=== PATIENT | male | born 1975 | race Hispanic/Latino ===

== ENCOUNTER 2018-10-20 09:32 | Inpatient (IN) | payer OTHER ==
--- NOTE | 2018-10-20 10:26 | ED PDOC ---
Arrival/HPI - General Chief Complaint: Chest Pain Time Seen by Provider: 10/20/18 10:01 Historian: Patient - History of Present Illness Narrative History of Present Illness (Text): 10/20/18 10:21 A 43 year old male, whose past medical history includes , presents to the emergency department complaining of chest pain. Patient reports had this pain before, however not as severe. States he was evaluated at [facility], and was given medication. About 1 week ago, pain became progressively worse. This morning 03:00, patient awoke with severe burning chest pain, with severity of 10/10 as per patient. Patient states now in the ER pain is about 5-6/10. Also, patient mentions pain radiates to left arm, and his left hand 2nd, 3rd, and 4th digits have a pinching sensation. Patient denies any shortness of breath, neck pain, or any other complaints at this time. Denies any family history of [place]/CAD. Admits to smoking. No PMD Past Medical History - Provider Review Nursing Documentation Reviewed: Yes - Travel History Have you recently traveled outside w/in the past 3 mons?: Yes If Yes, travel location?: [place] - Infectious Disease Hx of Infectious Diseases: None - Psychiatric Hx Substance Use: No Family/Social History - Physician Review Nursing Documentation Reviewed: Yes Family/Social History: No Known Family HX Smoking Status: Heavy Smoker > 10 Cigarettes Daily Hx Alcohol Use: Yes Frequency of alcohol use: Socially Hx Substance Use: No Allergies/Home Meds Allergies/Adverse Reactions: Allergies No Known Allergies Allergy (Verified 10/20/18 14:10) Home Medications: Home Meds Medication Instructions Recorded Confirmed RX: Aspirin [Ecotrin] 81 mg PO DAILY 10/20/18 10/20/18 Review of Systems - Physician Review All systems were reviewed & negative as marked: Yes - Review of Systems Respiratory: absent: SOB Cardiovascular: Chest Pain Musculoskeletal: absent: Neck Pain Neurological: Dizziness Physical Exam - Physical Exam Narrative Physical Exam (Text): Gen: VS reviewed, alert, well developed, well nourished, nontoxic, mild distress. ENT: normal pharynx. Eye: EOMI, PERRL. Neck: no JVD, supple, no adenopathy. CV: regular rate, regular rhythm, no rubs, no murmur, no gallops, S1, S2, pulses equal and strong, mild tenderness to anterior right upper chest wall. Pulm: no distress, clear to auscultation, no wheeze, no rhonchi, breath sounds equal, no rales. Abd: soft, nontender, no guarding, no rebound, no rigidity, normal bowel sounds. Ext: no edema. Skin: good color, no rash, no cyanosis. Psych: responds appropriately to questions, normal affect. Neuro: oriented x 3, CN2-12 intact grossly, motor intact, sensation intact. Vital Signs Temp Pulse Pulse Resp BP BP Pulse Ox 10/20/18 09:46 103 H 152/103 H 10/20/18 09:44 98.2 F 91 H 21 169/100 H 97 Medical Decision Making ED Course and Treatment: 10/20/18 10:25 Impression: 43 year old male with chest pain. Plan: -- EKG -- Chest X-ray -- Labs -- Reassess and disposition Progress Notes: 10/20/18 13:15 heart score = 2 10/20/18 14:[address] pratt. 10/20/18 15:[address] aguilar to the hospitalist service. patient to be admitted 10/20/18 16:[address] lozada, will see pt in consult, expected cardiac cath tomorrow, npo after midnight, would like pt to get single dose of lovenox for now and plavix 300mg - RAD Interpretation Narrative RAD Interpretations (Text): 10/20/2018 10:52 Chest X-ray IMPRESSION: No active disease. Dictator Maureen Fraire MD Radiology Orders: 10/20/18 10:21 CHEST PORTABLE [RAD] Stat - EKG Interpretation EKG Interpretation (Text): 10/20/18 09:39 nsr at 92 bpm, nml qrs, nml axis, no acute sttw abn Interpreted by ED Physician: Yes - Scribe Statement The provider has reviewed the documentation as recorded by the Sammi Sosa Provider Scribe Attestation: All medical record entries made by the Scribe were at my direction and personally dictated by me. I have reviewed the chart and agree that the record accurately reflects my personal performance of the history, physical exam, medical decision making, and the department course for this patient. I have also personally directed, reviewed, and agree with the discharge instructions and disposition. Disposition/Present on Arrival - Present on Arrival Any Indicators Present on Arrival: No History of DVT/PE: No History of Uncontrolled Diabetes: No Urinary Catheter: No History of Decub. Ulcer: No History Surgical Site Infection Following: None - Disposition Have Diagnosis and Disposition been Completed?: Yes Diagnosis: Acute coronary syndrome Disposition: HOSPITALIZED Disposition Time: 15:00 Patient Plan: Admission Condition: STABLE
[2018-10-20 10:51] LABS: BASO # 0.04 K/mm3 (0.0-2.0); BASO % 0.7 % (0.0-3.0); EOS # 0.3 (0.0-0.7); EOS % 4.6 % (1.5-5.0); GRAN # 2.52 (1.4-6.5); GRAN % 46.4 % (50.0-68.0); HEMOGLOBIN 15.5 g/dL (14.0-18.0); LYMPH % 36.1 % (22.0-35.0); MEAN CELL VOLUME 88.6 fl (80.0-105.0); MEAN CORPUSCULAR HEMOGLOBIN 29.4 pg (25.0-35.0); MEAN CORPUSCULAR HGB CONC 33.1 g/dl (31.0-37.0); MEAN PLATELET VOLUME 9.6 fl (7.0-11.0); MONO # 0.7 (0.1-0.6); MONO % 12.2 % (1.0-6.0); RBC 5.28 10^6/uL (3.5-6.1); RED CELL DISTRIBUTION WIDTH 14.5 % (11.5-14.5); WHITE BLOOD COUNT 5.4 10^3/uL (4.5-11.0)
--- NOTE | 2018-10-20 10:55 | RAD ---
Date of service: 10/20/2018 HISTORY: chest pain COMPARISON: No prior. FINDINGS: LUNGS: No active pulmonary disease. PLEURA: No significant pleural effusion identified, no pneumothorax apparent. CARDIOVASCULAR: No aortic atherosclerotic calcification present. Normal cardiac size. No pulmonary vascular congestion. OSSEOUS STRUCTURES: No significant abnormalities. VISUALIZED UPPER ABDOMEN: Normal. OTHER FINDINGS: None. IMPRESSION: No active disease.
[2018-10-20 11:02] LABS: INR 0.95; PARTIAL THROMBOPLASTIN TIME 29.3 Seconds (25.1-36.5); PROTHROMBIN TIME 10.9 SECONDS (9.4-12.5)
[2018-10-20 11:04] LABS: ALB/GLOB RATIO 1.5 (1.1-1.8); ALBUMIN 4.2 g/dL (3.0-4.8); ALT/SGPT 47 U/L (7-56); AST/SGOT 24 U/L (17-59); BLOOD UREA NITROGEN 20 mg/dL (7-21); CALCIUM 9.2 mg/dL (8.4-10.5); GFR NON-AFRICAN AMERICAN > 60; HDL CHOLESTEROL 50 mg/dL (29-60); LIPASE 89 U/L (23-300)
[2018-10-20 11:15] LABS: LDL CHOLESTEROL 133 mg/dL (0-129)
[2018-10-20 11:18] LABS: TROPONIN I 0.02 ng/mL
[2018-10-20] MEDS ORDERED: Enoxaparin 80 mg Syringe SC STA (15:58)
[2018-10-20 16:12] VITALS: BMI 33.6
[2018-10-20] MEDS ORDERED: Enoxaparin 100 mg Syringe SC STA (16:15)
[2018-10-20] MEDS ORDERED: Albuterol-Ipratrop 3 mg / 0.5 (3 ml) UD IH PRN (16:35)
--- NOTE | 2018-10-20 16:49 | CP.PCM.HP ---
History of Present Illness - History of Present Illness History of Present Illness: CC: Chest pain 43 M with no significant PMHx presents to the ED with chest pain. Patient states that his pain started 3 weeks ago and has become progressively worse. When the pain initially started her went to an urgent care which sent him home with abx. The pain came back again 3 days ago and he took an aspirin and it resolved sp ontaneously. Than last night at 3am the pain became 10/10 in severity and his told him to come to the ED. Patient did just recently travel to [facility] 2 weeks ago. Denies any other complaints.Denies any f/c, sob, palpitations, abd pain, n/v/d. 12 Point ROS performed and neg other than stated above PMHx: as above PSHx: denies All: NKDA SH: Active smoker of 2 PPD, Social drinker, denies any drug use FH: mother with CAD, just had CABG 1 year ago Present on Admission - Present on Admission Any Indicators Present on Admission: No Review of Systems - Review of Systems All systems: reviewed and no additional remarkable complaints except Past Patient History - Infectious Disease Hx of Infectious Diseases: None - Past Social History Smoking Status: Heavy Smoker > 10 Cigarettes Daily - PSYCHIATRIC Hx Substance Use: No - SURGICAL HISTORY Hx Surgeries: No Meds Allergies/Adverse Reactions: Allergies Allergy/AdvReac Type Severity Reaction Status Date / Time No Known Allergies Allergy Verified 10/20/18 17:57 Physical Exam - Constitutional Appears: No Acute Distress - Head Exam Head Exam: ATRAUMATIC, NORMOCEPHALIC - Eye Exam Eye Exam: EOMI, PERRL Pupil Exam: NORMAL ACCOMODATION - Respiratory Exam Respiratory Exam: Clear to Auscultation Bilateral - Cardiovascular Exam Cardiovascular Exam: REGULAR RHYTHM, +S1, +S2 - GI/Abdominal Exam GI & Abdominal Exam: Normal Bowel Sounds, Soft - Extremities Exam Extremities exam: Positive for: normal capillary refill. Negative for: calf tenderness, pedal edema - Neurological Exam Neurological exam: Alert, CN II-XII Intact, Oriented x3 - Psychiatric Exam Psychiatric exam: Normal Mood - Skin Skin Exam: Dry, Warm Results - Vital Signs Recent Vital Signs: Last Vital Signs Temp 98.1 F 10/20/18 15:03 Pulse 73 10/20/18 15:03 Resp 18 10/20/18 15:03 BP 148/89 10/20/18 15:03 Pulse Ox 95 10/20/18 15:03 - Labs Result Diagrams: 10/20/18 10:01 10/20/18 10:01 Labs: Laboratory Results - last 24 hr 10/20/18 10/20/18 10/20/18 10:01 10:01 10:01 WBC 5.4 RBC 5.28 Hgb 15.5 Hct 46.8 MCV 88.6 MCH 29.4 MCHC 33.1 RDW 14.5 Plt Count 258 MPV 9.6 Gran % 46.4 L Lymph % (Auto) 36.1 H [place] % (Auto) 12.2 H Eos % (Auto) 4.6 Baso % (Auto) 0.7 Gran # 2.52 Lymph # (Auto) 2.0 [place] # (Auto) 0.7 H Eos # (Auto) 0.3 Baso # (Auto) 0.04 PT 10.9 INR 0.95 APTT 29.3 Sodium 139 Potassium 4.9 Chloride 108 H Carbon Dioxide 24 Anion Gap 12 BUN 20 Creatinine 1.2 Est GFR ( Amer) > 60 Est GFR (Non-Af Amer) > 60 Random Glucose 108 Calcium 9.2 Total Bilirubin 0.3 AST 24 ALT 47 Alkaline Phosphatase 65 Troponin I 0.02 Total Protein 7.0 Albumin 4.2 Globulin 2.8 Albumin/Globulin Ratio 1.5 Triglycerides 178 H Cholesterol 229 H LDL Cholesterol Direct 133 H HDL Cholesterol 50 Lipase 89 TSH 3rd Generation 10/20/18 10/20/18 10:01 13:00 WBC RBC Hgb Hct MCV MCH MCHC RDW Plt Count MPV Gran % Lymph % (Auto) [place] % (Auto) Eos % (Auto) Baso % (Auto) Gran # Lymph # (Auto) [place] # (Auto) Eos # (Auto) Baso # (Auto) PT INR APTT Sodium Potassium Chloride Carbon Dioxide Anion Gap BUN Creatinine Est GFR ( Amer) Est GFR (Non-Af Amer) Random Glucose Calcium Total Bilirubin AST ALT Alkaline Phosphatase Troponin I 0.20 H* D Total Protein Albumin Globulin Albumin/Globulin Ratio Triglycerides Cholesterol LDL Cholesterol Direct HDL Cholesterol Lipase TSH 3rd Generation 1.25 Assessment & Plan - Assessment and Plan (Free Text) Assessment: 43 M with no significant PMHx presents to the ED with chest pain, found to have elevated troponin likely 2/2 NSTEMI. Elevated Troponin likely 2/2 NSTEMI - NPO - Aspirin 81mg daily - Plavix 300mg in the ED - Started on Metoprolol and Statin - Therapeutic dose of anticoagulation with Lovenox 95 BID - Cardiology consulted for recs - possible cardiac cath mavis - Echo ordered - Tele monitoring - F/u serial troponin - Duonebs as needed - Daily labs GI/DVT - Lovenox and protonix Case and plan was reviewed and discussed with Dr Chauhan.
--- NOTE | 2018-10-20 17:55 | CARD ---
APPROVED REPORT Date of service: 10/20/2018 EKG Measurement Heart [id number] <Conclusion> Normal sinus rhythm Left axis deviation Abnormal ECG
[2018-10-20] MEDS ORDERED: Influenza Vaccine 60 mcg/0.5 mL SYR (4YR UP) IM ONE (19:36)
[2018-10-20] MEDS ORDERED: Pneumococcal 23-Valent Vaccine IM ONE (19:36)
[2018-10-20 21:39] LABS: TROPONIN I 1.2 ng/mL
[2018-10-21] MEDS ORDERED: Nitroglycerin 2% Ointment Foilpak UD TOP STA (00:17)
[2018-10-21] MEDS: Pantoprazole 40 mg EC Tab PO SCH (06:03)
[2018-10-21 07:01] LABS: BASO # 0.04 K/mm3 (0.0-2.0); BASO % 0.6 % (0.0-3.0); EOS # 0.3 (0.0-0.7); EOS % 4.7 % (1.5-5.0); GRAN # 2.32 (1.4-6.5); GRAN % 36.8 % (50.0-68.0); HEMOGLOBIN 14.7 g/dL (14.0-18.0); LYMPH # 2.6 (1.2-3.4); LYMPH % 41.3 % (22.0-35.0); MEAN CELL VOLUME 88.6 fl (80.0-105.0); MEAN CORPUSCULAR HGB CONC 32.7 g/dl (31.0-37.0); MEAN PLATELET VOLUME 9.4 fl (7.0-11.0); MONO # 1.1 (0.1-0.6); MONO % 16.6 % (1.0-6.0); RBC 5.07 10^6/uL (3.5-6.1); RED CELL DISTRIBUTION WIDTH 14.8 % (11.5-14.5); WHITE BLOOD COUNT 6.3 10^3/uL (4.5-11.0)
[2018-10-21 07:25] LABS: ALB/GLOB RATIO 1.3 (1.1-1.8); ALBUMIN 3.9 g/dL (3.0-4.8); ALT/SGPT 43 U/L (7-56); AST/SGOT 34 U/L (17-59); BLOOD UREA NITROGEN 20 mg/dL (7-21); CALCIUM 8.9 mg/dL (8.4-10.5); GFR NON-AFRICAN AMERICAN 60
[2018-10-21 07:42] LABS: URINE APPEARANCE CLEAR (CLEAR); URINE BILIRUBIN NEGATIVE (NEGATIVE); URINE BLOOD NEGATIVE (NEGATIVE); URINE COLOR LIGHT YELLOW (YELLOW); URINE GLUCOSE (UA) NEGATIVE (NEGATIVE); URINE LEUKOCYTE ESTERASE NEGATIVE Leu/uL (NEGATIVE); URINE PROTEIN NEGATIVE mg/dL (<30 mg/dL); URINE UROBILINOGEN 0.2 E.U./dL (<1 E.U./dL)
[2018-10-21] MEDS ORDERED: Lidocaine 2% Inj (20ml) ONE (08:55)
[2018-10-21] MEDS ORDERED: Iodixanol 320 MG/ML 200 ML BOTTLE IV ONE (08:55)
--- NOTE | 2018-10-21 09:13 | CARD ---
APPROVED REPORT Date of service: 10/21/2018 EKG Measurement Heart [id number] <Conclusion> Normal sinus rhythm Left axis deviation T wave abnormality, consider anterolateral ischemia Prolonged QT Abnormal ECG
[2018-10-21] MEDS ORDERED: Midazolam 2 MG/2 ML VIAL ONE ×3 (09:33→10:16)
[2018-10-21] MEDS ORDERED: Eptifibatide 20 mg/10mL Inj IVP ONE (09:43)
[2018-10-21] MEDS ORDERED: Eptifibatide 0.75 mg/ml 75 MG/100 ML BOTTLE IV ONE ×2 (09:50→16:57)
[2018-10-21] MEDS ORDERED: Iohexol 350mgl/ml 50 ML ONE (09:57)
--- NOTE | 2018-10-21 10:19 | CON ---
DATE: 10/20/2018 HISTORY: The patient is a 43-year-old male, who presents with substernal pressure. The patient's cardiac risk factors include heavy smoking for many years. In addition, he has marked family history for coronary disease with mother and father, both with documented coronary disease. In the emergency room, his troponins were found to be elevated. He denies diabetes mellitus or hypertension. SOCIAL HISTORY: The patient is an active smoker and works for the [employer] REVIEW OF SYSTEMS: Fourteen-point review of systems is reviewed in detail. Other than his angina and dyspnea, no other cardiac symptoms are noted. No ulcers. No bleeding history and no past medical history. PHYSICAL EXAMINATION: VITAL SIGNS: Blood pressure is 132/90, heart rate is in the 70s. NECK: Negative JVD. LUNGS: Without rales. HEART: Heart rate, S1, S2. EXTREMITIES: Without edema. EKG reveals normal sinus rhythm with diffuse ST-T changes in the anterior precordium. Troponins were elevated to 0.2. BUN and creatinine, unremarkable. Hemoglobin is 14. IMPRESSION: 1. Non-ST elevation myocardial infarction. 2. Unstable angina. 3. Coronary artery disease. 4. Probable chronic obstructive pulmonary disease. 5. Nicotine addiction. 6. Strong family history for coronary artery disease. PLAN: Given these findings, the patient will be started on aspirin, Plavix, Lovenox, nitroglycerin, and beta blockers. The patient will need cardiac catheterization. John Grace MD
[2018-10-21] MEDS ORDERED: Nitroglycerin 50mg in D5W 50 MG/250 ML BOTTLE IV ONE (10:20)
[2018-10-21] MEDS ORDERED: Iodixanol 320 MG/ML 100 ML BOTTLE IV ONE (10:22)
[2018-10-21] MEDS: Enoxaparin 100 mg Syringe SC SCH ×2 (10:32→22:00)
[2018-10-21] MEDS ORDERED: Sodium Chloride 0.9% 1,000 ML IV SCH (10:45)
--- NOTE | 2018-10-21 12:56 | CP.PCM.PN ---
<Eliseo Livingston - Last Filed: 10/21/18 12:51> Subjective - Date & Time of Evaluation Date of Evaluation: 10/21/18 Time of Evaluation: 07:15 - Subjective Subjective: Hospitalist Progress Note: Pt seen and examined at bedside. No acute events overnight. Patient is NPO this am for cardiac cath. Mild chest pain but denies any sob. No other complaints. 12 Point ROS performed and neg other than stated above. Objective - Vital Signs/Intake and Output Vital Signs (last 24 hours): Temp Pulse Resp BP Pulse Ox 97.7 F 74 18 122/71 97 10/21/18 11:55 10/21/18 11:55 10/21/18 11:55 10/21/18 11:55 10/21/18 06:00 Intake and Output: 10/21/18 10/21/18 06:59 18:59 Intake Total 0 Balance 0 - Medications Medications: Current Medications Albuterol/Ipratropium (Duoneb 3 Mg/0.5 Mg (3 Ml) Ud) 3 ml IH [id number] PRN PRN Reason: Shortness of Breath Aspirin (Aspirin Chewable) 81 mg PO DAILY [facility] Last Admin: 10/21/18 10:31 Dose: Not Given Aspirin (Ecotrin) 81 mg PO DAILY [facility] Atorvastatin Calcium (Lipitor) 40 mg PO DIN [facility] Last Admin: 10/20/18 19:01 Dose: 40 mg Clopidogrel Bisulfate (Plavix) 75 mg PO DAILY [facility] Enoxaparin Sodium (Lovenox) 95 mg SC Q12H [facility]; Protocol Last Admin: 10/21/18 10:32 Dose: Not Given Sodium Chloride (Sodium Chloride 0.9%) 1,000 mls @ 100 mls/hr IV .Q10H [facility] Stop: 10/21/18 17:00 Nicotine (Nicoderm Cq) 1 patch TD DAILY [facility] Pantoprazole Sodium (Protonix Ec Tab) 40 mg PO 0600 [facility] Last Admin: 10/21/18 06:03 Dose: 40 mg - Labs Labs: 10/21/18 06:30 10/21/18 06:30 PT 10.9 SECONDS (9.4-12.5) 10/20/18 10:01 INR 0.95 10/20/18 10:01 APTT 29.3 Seconds (25.1-36.5) 10/20/18 10:01 - Constitutional Appears: No Acute Distress - Head Exam Head Exam: ATRAUMATIC, NORMOCEPHALIC - Eye Exam Eye Exam: EOMI - ENT Exam ENT Exam: Mucous Membranes Moist - Respiratory Exam Respiratory Exam: Clear to Ausculation Bilateral. absent: Rales, Wheezes - Cardiovascular Exam Cardiovascular Exam: REGULAR RHYTHM, RRR, +S1, +S2 - GI/Abdominal Exam GI & Abdominal Exam: Soft. absent: Distended, Tenderness - Extremities Exam Extremities Exam: absent: Calf Tenderness, Pedal Edema - Back Exam Back Exam: absent: paraspinal tenderness, vertebral tenderness - Neurological Exam Neurological Exam: Alert, Awake, Oriented x3 - Psychiatric Exam Psychiatric exam: Normal Mood - Skin Skin Exam: Dry, Warm Assessment and Plan - Assessment and Plan (Free Text) Assessment: 43 M with no significant PMHx presents to the ED with chest pain, found to have elevated troponin likely 2/2 NSTEMI. NPO today for cardiac cath. Elevated Troponin likely 2/2 NSTEMI - NPO - for cardiac cath - Aspirin 81mg and plavix daily - Started on Metoprolol and Statin - Anticoagulation with Lovenox 95 BID - Cardiology consulted for recs - pland for cardiac cath today - Echo ordered - will follow up - Tele monitoring - F/u serial troponin 0.02--> 0.2--> 1.2--> 1.01 - Duonebs as needed - Daily labs GI/DVT - Lovenox and protonix Case and plan was reviewed and discussed with Dr Covarrubias <Wilfrido Covarrubias - Last Filed: 10/22/18 18:17> Objective - Vital Signs/Intake and Output Vital Signs (last 24 hours): Temp Pulse Resp BP Pulse Ox 98.2 F 75 18 124/66 95 10/22/18 13:25 10/22/18 16:55 10/22/18 16:55 10/22/18 16:55 10/22/18 06:00 Intake and Output: 10/22/18 10/22/18 06:59 18:59 Intake Total 640 Balance 640 - Medications Medications: Current Medications Albuterol/Ipratropium (Duoneb 3 Mg/0.5 Mg (3 Ml) Ud) 3 ml IH [id number] PRN PRN Reason: Shortness of Breath Aspirin (Ecotrin) 81 mg PO DAILY [facility] Last Admin: 10/22/18 10:07 Dose: 81 mg Atorvastatin Calcium (Lipitor) 40 mg PO DIN [facility] Last Admin: 10/22/18 17:32 Dose: 40 mg Clopidogrel Bisulfate (Plavix) 75 mg PO DAILY [facility] Last Admin: 10/22/18 10:07 Dose: 75 mg Nicotine (Nicoderm Cq) 1 patch TD DAILY [facility] Last Admin: 10/22/18 10:08 Dose: Not Given - Labs Labs: 10/22/18 06:30 10/22/18 06:30 PT 10.9 SECONDS (9.4-12.5) 10/20/18 10:01 INR 0.95 10/20/18 10:01 APTT 29.3 Seconds (25.1-36.5) 10/20/18 10:01 Attending/Attestation - Attestation I have personally seen and examined this patient.: Yes I have fully participated in the care of the patient.: Yes I have reviewed all pertinent clinical information, including history, physical exam and plan: Yes Notes (Text): NSTEMI s/p cardiac cath with 3 LAMONT placed c/w DAPT Cardiology on board, will f/u further recommendations
--- NOTE | 2018-10-21 13:57 | CARDCATH ---
PROCEDURE DATE: 10/21/2018 HISTORY: The patient is a 43-year-old male who presents with unstable angina and non-STEMI. The patient was started on intravenous Integrilin, Plavix, aspirin and brought to the labourers for an emergency cardiac catheterization. PROCEDURE: Left heart catheterization with coronary arteriography and left ventriculogram and a supraaortic valvular injection followed by PTCA and stent of two lesions in the LAD as well as the circumflex artery with drug-eluting stents. The right femoral artery was cannulated with a 6-Ind[place] sheath. There were no complications. I performed moderate sedation which included the presence of an independent trained observer that assisted in monitoring the patient's level of consciousness and physiologic status. After administration of Versed and fentanyl, my intra service time was 45 minutes. The findings on catheterization revealed a left ventricle that preserved its LV function. Estimated ejection fraction is 55-60 percent. His coronary anatomy revealed a right dominant circulation. The RCA revealed diffuse atherosclerosis throughout its tree with no critical lesions. The left main artery was unremarkable. The LAD revealed a 70 percent stenosis at its ostium followed by a 99 percent stenosis in its proximal portion with the rest of the LAD revealed diffuse intimal irregularities without critical lesions including a 40 50 percent stenosis in the mid portion. The circumflex artery consisted of a large obtuse marginal branch. There was a 70 percent stenosis at the proximal portion of the obtuse marginal branch. The patient was started on intravenous heparin, which resulted in ACT of 270. With concomitant Integrilin, a guiding catheter was placed in the ostium of the left main artery and 0.014 ATW wire was used to cross the two lesions in the LAD. Predilatation was performed with a 2.5 balloon. Postdilatation was performed with a 3.5 x 12 mm drug-eluting stent was placed and deployed in the proximal lesion. A 3.5 x 8 mm drug-eluting stent was placed and deployed at the ostium of the LAD. Repeat coronary arteriography revealed an excellent result with no residual stenosis and JAMES III flow. The wire was then brought back into the circumflex artery. A 3.5 x 8 mm drug-eluting stent was placed at the proximal portion of the OM. After balloon deflation and removal, repeat coronary arteriography revealed an excellent result with no residual stenosis and JAMES III flow. The patient tolerated the procedure well. Angio-Seal was used to close the femoral artery site. In summary, the procedure was successful for an emergency PTCA and stent of two lesions in the proximal and ostium of the LAD, as well as the proximal obtuse marginal branch, all with drug-eluting stents. 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 Normal LV function. Given these findings, the patient will need to remain on aspirin indefinitely and Plavix for at least a year. He will remain on Integrilin for the next 18 hours. He needs to stop smoking and undergo a strict cardiac risk reduction program. John Grace MD
--- NOTE | 2018-10-21 18:55 | CARD ---
APPROVED REPORT Date of service: 10/21/2018 EKG Measurement Heart [id number] <Conclusion> Normal sinus rhythm T wave abnormality, consider anterolateral ischemia Prolonged QT Abnormal ECG
[2018-10-21] MEDS ORDERED: Eptifibatide 0.75 mg/ml 75 MG/100 ML BOTTLE IV SCH (22:45)
[2018-10-22] MEDS: Pantoprazole 40 mg EC Tab PO SCH (06:55)
[2018-10-22 07:07] LABS: BASO # 0.02 K/mm3 (0.0-2.0); BASO % 0.3 % (0.0-3.0); EOS # 0.3 (0.0-0.7); EOS % 3.1 % (1.5-5.0); GRAN # 4.45 (1.4-6.5); GRAN % 55.8 % (50.0-68.0); HEMOGLOBIN 14.1 g/dL (14.0-18.0); LYMPH # 2.4 (1.2-3.4); LYMPH % 30.6 % (22.0-35.0); MEAN CELL VOLUME 88.4 fl (80.0-105.0); MEAN CORPUSCULAR HEMOGLOBIN 28.7 pg (25.0-35.0); MEAN CORPUSCULAR HGB CONC 32.4 g/dl (31.0-37.0); MEAN PLATELET VOLUME 9.4 fl (7.0-11.0); MONO # 0.8 (0.1-0.6); MONO % 10.2 % (1.0-6.0); RBC 4.92 10^6/uL (3.5-6.1); RED CELL DISTRIBUTION WIDTH 14.4 % (11.5-14.5)
[2018-10-22 07:10] LABS: ALB/GLOB RATIO 1.2 (1.1-1.8); ALBUMIN 3.8 g/dL (3.0-4.8); ALT/SGPT 45 U/L (7-56); AST/SGOT 29 U/L (17-59); BLOOD UREA NITROGEN 14 mg/dL (7-21); GFR NON-AFRICAN AMERICAN > 60
--- NOTE | 2018-10-22 08:30 | PN ---
DATE: 10/22/2018 SUBJECTIVE: The patient had an episode of chest pain. EKG shows evolution of his ST changes. PHYSICAL EXAMINATION: VITAL SIGNS: Stable. NECK: Negative JVD. LUNGS: Without rales. HEART: Reveals S1, S2 with right groin site is stable. EKG shows evolving ST-T changes across the anterior precordium. LABORATORY DATA: Hemoglobin is unremarkable. Troponins yesterday peaked at 1.2. IMPRESSION: 1. Recurrent chest pain post catheterization. 2. Status post percutaneous transluminal coronary angioplasty and stent of 2 lesions in the left anterior descending and one in the right coronary artery. 3. Recurrent chest pain. 4. Chronic obstructive pulmonary disease. Given these findings, we will bring the patient back for catheterization and see the patency of his LAD. John Grace MD
[2018-10-22] MEDS ORDERED: Phenylephrine 10 mg/ml Inj ONE (12:05)
[2018-10-22] MEDS ORDERED: Iodixanol 320 MG/ML 100 ML BOTTLE IV ONE (12:06)
[2018-10-22] MEDS ORDERED: Iohexol 350mgl/ml 50 ML ONE (12:06)
[2018-10-22] MEDS ORDERED: Iodixanol 320 MG/ML 200 ML BOTTLE IV ONE (12:06)
[2018-10-22] MEDS ORDERED: Lidocaine 2% Inj (20ml) ONE (12:06)
[2018-10-22] MEDS ORDERED: Nitroglycerin 50mg in D5W 0 MG/0 ML BOTTLE IV ONE (12:06)
[2018-10-22] MEDS ORDERED: Midazolam 2 MG/2 ML VIAL ONE ×3 (12:22→12:35)
[2018-10-22] MEDS ORDERED: Sodium Chloride 0.9% 1,000 ML IV SCH (13:00)
--- NOTE | 2018-10-22 15:22 | CP.PCM.PN ---
<Eliseo Livingston - Last Filed: 10/22/18 15:22> Subjective - Date & Time of Evaluation Date of Evaluation: 10/22/18 Time of Evaluation: 07:45 - Subjective Subjective: Hospitalist Progress Note: Pt seen and examined at bedside. No acute events overnight. Patient had episode of chest pain last night with some EKG changes. NPO this am for cardiac cath again. No other complaints. 12 Point ROS performed and neg other than stated above. Objective - Vital Signs/Intake and Output Vital Signs (last 24 hours): Temp Pulse Resp BP Pulse Ox 98.2 F 77 18 136/75 95 10/22/18 13:25 10/22/18 14:00 10/22/18 13:55 10/22/18 13:55 10/22/18 06:00 Intake and Output: 10/22/18 10/22/18 06:59 18:59 Intake Total 640 Balance 640 - Medications Medications: Current Medications Albuterol/Ipratropium (Duoneb 3 Mg/0.5 Mg (3 Ml) Ud) 3 ml IH [id number] PRN PRN Reason: Shortness of Breath Aspirin (Ecotrin) 81 mg PO DAILY [facility] Last Admin: 10/22/18 10:07 Dose: 81 mg Atorvastatin Calcium (Lipitor) 40 mg PO DIN [facility] Last Admin: 10/21/18 18:15 Dose: 40 mg Clopidogrel Bisulfate (Plavix) 75 mg PO DAILY [facility] Last Admin: 10/22/18 10:07 Dose: 75 mg Sodium Chloride (Sodium Chloride 0.9%) 1,000 mls @ 100 mls/hr IV .Q10H [facility] Stop: 10/22/18 18:00 Last Admin: 10/22/18 13:33 Dose: 100 mls/hr Nicotine (Nicoderm Cq) 1 patch TD DAILY [facility] Last Admin: 10/22/18 10:08 Dose: Not Given - Labs Labs: 10/22/18 06:30 10/22/18 06:30 PT 10.9 SECONDS (9.4-12.5) 10/20/18 10:01 INR 0.95 10/20/18 10:01 APTT 29.3 Seconds (25.1-36.5) 10/20/18 10:01 - Constitutional Appears: No Acute Distress - Head Exam Head Exam: ATRAUMATIC - Eye Exam Eye Exam: EOMI, PERRL - ENT Exam ENT Exam: Mucous Membranes Moist - Respiratory Exam Respiratory Exam: Clear to Ausculation Bilateral. absent: Rales, Wheezes - Cardiovascular Exam Cardiovascular Exam: REGULAR RHYTHM, RRR, +S1, +S2 - GI/Abdominal Exam GI & Abdominal Exam: Soft. absent: Distended, Tenderness - Extremities Exam Extremities Exam: absent: Calf Tenderness, Pedal Edema - Neurological Exam Neurological Exam: Alert, Awake, Oriented x3 - Psychiatric Exam Psychiatric exam: Normal Mood - Skin Skin Exam: Dry, Warm Assessment and Plan - Assessment and Plan (Free Text) Assessment: 43 M with no significant PMHx presents to the ED with chest pain, found to have elevated troponin likely 2/2 NSTEMI s/p 2 stents in LAD and 1 stent in OM. Plan for repeat cath for chest pain and EKG changes. Elevated Troponin likely 2/2 NSTEMI s/p 3 stents - NPO - for repeat cardiac cath this am - Aspirin 81mg and plavix daily - Continue Statin - Cardiology consulted for recs - plan for repeat cardiac cath - Echo ordered - will follow up - Tele monitoring - F/u serial troponin 0.02--> 0.2--> 1.2--> 1.01 - Duonebs as needed - Daily labs - Encouraged smoking cessation GI/DVT - Lovenox and protonix Case and plan was reviewed and discussed with Dr Covarrubias <Wilfrido Covarrubias - Last Filed: 10/22/18 18:19> Objective - Vital Signs/Intake and Output Vital Signs (last 24 hours): Temp Pulse Resp BP Pulse Ox 98.2 F 75 18 124/66 95 10/22/18 13:25 10/22/18 16:55 10/22/18 16:55 10/22/18 16:55 10/22/18 06:00 Intake and Output: 10/22/18 10/22/18 06:59 18:59 Intake Total 640 Balance 640 - Medications Medications: Current Medications Albuterol/Ipratropium (Duoneb 3 Mg/0.5 Mg (3 Ml) Ud) 3 ml IH [id number] PRN PRN Reason: Shortness of Breath Aspirin (Ecotrin) 81 mg PO DAILY [facility] Last Admin: 10/22/18 10:07 Dose: 81 mg Atorvastatin Calcium (Lipitor) 40 mg PO DIN [facility] Last Admin: 10/22/18 17:32 Dose: 40 mg Clopidogrel Bisulfate (Plavix) 75 mg PO DAILY [facility] Last Admin: 10/22/18 10:07 Dose: 75 mg Nicotine (Nicoderm Cq) 1 patch TD DAILY [facility] Last Admin: 10/22/18 10:08 Dose: Not Given - Labs Labs: 10/22/18 06:30 10/22/18 06:30 PT 10.9 SECONDS (9.4-12.5) 10/20/18 10:01 INR 0.95 10/20/18 10:01 APTT 29.3 Seconds (25.1-36.5) 10/20/18 10:01 Attending/Attestation - Attestation I have personally seen and examined this patient.: Yes I have fully participated in the care of the patient.: Yes I have reviewed all pertinent clinical information, including history, physical exam and plan: Yes Notes (Text): Overnight, pt had some chest tightness and EKG showed some Twave changes Cardio was informed, plan is to take pt for another cath today will f/u findings and further recommendations c/w DAPT
--- NOTE | 2018-10-22 18:16 | CARDCATH ---
PROCEDURE DATE: 10/22/2018 The patient is status post non-STEMI and status post multivessel CAD complicated by post infarction angina. Because of his recurrent angina and chest pain as well as EKG changes, we brought the patient back for cardiac catheterization. PROCEDURE: Left heart catheterization with coronary artery and left ventriculogram. The left femoral artery was cannulated with 6-Guamanian sheath. There were no complications. I performed moderate sedation, which included the presence of an independent trained observer that assisted in monitoring the patient's level of consciousness and physiologic status. After administration of Versed and fentanyl, my intra service time was 15 minutes. Findings on catheterization revealed patent stents in the proximal LAD as well as the ostium of the LAD. The stent in two LADs were widely patent with JAMES III flow. The stent in the proximal portion of the obtuse marginal branch was found to be widely patent and provided good antegrade flow. Left ventriculogram was performed in the CHARLES projection. In the CHARLES projection, wall motion is within normal limits. Estimated ejection fraction is between 60 and 65%. Angio-Seal was used to close the left femoral artery site. The patient tolerated the procedure well. In summary, the procedure revealed patent stents x2 in the LAD as well as patent stents in the circumflex artery, which were all done after episodes of unstable angina, non-STEMI. Given these findings, the patient is doing well. He will remain on aspirin indefinitely, Plavix for at least a year, statin therapy as well as nicotine patch to help him stop smoking. John Grace MD
--- NOTE | 2018-10-22 20:29 | CARD ---
APPROVED REPORT Date of service: 10/22/2018 EKG Measurement Heart [id number] <Conclusion> Normal sinus rhythm Left axis deviation Nonspecific T wave abnormality Abnormal ECG
--- NOTE | 2018-10-22 20:42 | CARD ---
APPROVED REPORT Date of service: 10/21/2018 EKG Measurement Heart [id number] <Conclusion> Normal sinus rhythm T wave abnormality, consider anterolateral ischemia Prolonged QT Abnormal ECG
--- NOTE | 2018-10-22 21:03 | CARD ---
APPROVED REPORT Date of service: 10/22/2018 EXAM: Two-dimensional and M-mode echocardiogram with Doppler and color Doppler. INDICATION ELEVATED TROPONIN 2D DIMENSIONS Left Atrium (2D)3.8 (1.6-4.0cm)IVSd1.1 (0.7-1.1cm) LVDd4.6 (3.9-5.9cm)PWd1.1 (0.7-1.1cm) LVDs3.1 (2.5-4.0cm)FS (%) 33.3 % LVEF (%)62.0 (>50%) M-Mode DIMENSIONS Aortic Root3.40 (2.2-3.7cm)Aortic Cusp Exc.2.10 (1.5-2.0cm) Aortic Valve AoV Peak Fmixbbvd875.0cm/Bar Peak GR.6mmHg Mitral Valve MV E Petmiiey75.6cm/sMV A Oprxfler67.9cm/sE/A ratio1.2 TDI Lateral E' Peak V10.20cm/sMedial E' Peak V7.31cm/sE/Lateral E'7.8 E/Medial E'10.9 Pulmonary Valve PV Peak Auphueip18.5cm/sPV Peak Grad.3mmHg Tricuspid Valve TR Peak Kzlaxsgn415tb/sRAP LORSGRNN50jpGqMN Peak Gr.22mmHg HDFP95zyTm LEFT VENTRICLE The left ventricle is normal size. There is normal left ventricular wall thickness. The left ventricular function is normal. The left ventricular ejection fraction is within the normal range. There is normal LV segmental wall motion. The left ventricular diastolic function is normal. RIGHT VENTRICLE The right ventricle is normal size. There is normal right ventricular wall thickness. The right ventricular systolic function is normal. ATRIA The left atrium size is normal. The right atrium size is normal. AORTIC VALVE The aortic valve is normal in structure. No aortic regurgitation is present. There is no aortic valvular stenosis. MITRAL VALVE The mitral valve is normal in structure. Mitral regurgitation is trace to mild. There is no mitral valve stenosis. TRICUSPID VALVE The tricuspid valve is normal in structure. There is trace tricuspid regurgitation. PULMONIC VALVE The pulmonary valve is normal in structure. There is trace pulmonic valvular regurgitation. GREAT VESSELS The aortic root is normal in size. PERICARDIAL EFFUSION There is no pericardial effusion. <Conclusion> The left ventricle is normal size. There is normal left ventricular wall thickness. The left ventricular function is normal. The left ventricular ejection fraction is within the normal range. There is normal LV segmental wall motion. The left ventricular diastolic function is normal. Mitral regurgitation is trace to mild.
[2018-10-23 00:57] VITALS: BP 133/72; RESP 20; TEMP 98.2; O2SAT 99
[2018-10-23 06:42] VITALS: PULSE 65
[2018-10-23 07:01] LABS: BASO # 0.02 K/mm3 (0.0-2.0); BASO % 0.3 % (0.0-3.0); EOS # 0.2 (0.0-0.7); EOS % 3.3 % (1.5-5.0); GRAN # 3.96 (1.4-6.5); GRAN % 57.5 % (50.0-68.0); HEMOGLOBIN 14.6 g/dL (14.0-18.0); LYMPH # 1.7 (1.2-3.4); LYMPH % 24.8 % (22.0-35.0); MEAN CELL VOLUME 88.2 fl (80.0-105.0); MEAN CORPUSCULAR HEMOGLOBIN 28.8 pg (25.0-35.0); MEAN CORPUSCULAR HGB CONC 32.7 g/dl (31.0-37.0); MEAN PLATELET VOLUME 9.3 fl (7.0-11.0); MONO % 14.1 % (1.0-6.0); RBC 5.07 10^6/uL (3.5-6.1); RED CELL DISTRIBUTION WIDTH 14.4 % (11.5-14.5); WHITE BLOOD COUNT 6.9 10^3/uL (4.5-11.0)
[2018-10-23 07:24] LABS: ALB/GLOB RATIO 1.3 (1.1-1.8); ALBUMIN 4.1 g/dL (3.0-4.8); ALT/SGPT 38 U/L (7-56); AST/SGOT 36 U/L (17-59); BLOOD UREA NITROGEN 14 mg/dL (7-21); GFR NON-AFRICAN AMERICAN > 60
--- NOTE | 2018-10-23 12:18 | CP.PCM.DIS ---
<Eliseo Livingston - Last Filed: 10/23/18 12:12> Provider - Provider Date of Admission: 10/20/18 15:24 Attending physician: Stephen Chauhan MD Consults: 10/20/18 15:26 Consult [Physician Consult] Stat Comment: Consulting Provider: John Grace Consulting Physician: John Grace Reason for Consult: ACS 10/20/18 19:36 Inpatient PLAY THERAPIST Core Measures Referral Routine Comment: Physician Instructions: Reason For Exam: EVALUATION Transition In Care/Readmission Reduction Routine Comment: Physician Instructions: Reason For Exam: EVALUATION Time Spent in preparation of Discharge (in minutes): 35 Hospital Course - Lab Results Lab Results: Most Recent Lab Values WBC 6.9 10^3/uL (4.5-11.0) 10/23/18 06:20 RBC 5.07 10^6/uL (3.5-6.1) 10/23/18 06:20 Hgb 14.6 g/dL (14.0-18.0) 10/23/18 06:20 Hct 44.7 % (42.0-52.0) 10/23/18 06:20 MCV 88.2 fl (80.0-105.0) 10/23/18 06:20 MCH 28.8 pg (25.0-35.0) 10/23/18 06:20 MCHC 32.7 g/dl (31.0-37.0) 10/23/18 06:20 RDW 14.4 % (11.5-14.5) 10/23/18 06:20 Plt Count 242 10^3/uL (120.0-450.0) 10/23/18 06:20 MPV 9.3 fl (7.0-11.0) 10/23/18 06:20 Gran % 57.5 % (50.0-68.0) 10/23/18 06:20 Lymph % (Auto) 24.8 % (22.0-35.0) 10/23/18 06:20 Frederick % (Auto) 14.1 % (1.0-6.0) H 10/23/18 06:20 Eos % (Auto) 3.3 % (1.5-5.0) 10/23/18 06:20 Baso % (Auto) 0.3 % (0.0-3.0) 10/23/18 06:20 Gran # 3.96 (1.4-6.5) 10/23/18 06:20 Lymph # (Auto) 1.7 (1.2-3.4) 10/23/18 06:20 Frederick # (Auto) 1.0 (0.1-0.6) H 10/23/18 06:20 Eos # (Auto) 0.2 (0.0-0.7) 10/23/18 06:20 Baso # (Auto) 0.02 K/mm3 (0.0-2.0) 10/23/18 06:20 PT 10.9 SECONDS (9.4-12.5) 10/20/18 10:01 INR 0.95 10/20/18 10:01 APTT 29.3 Seconds (25.1-36.5) 10/20/18 10:01 Sodium 139 mmol/L (132-148) 10/23/18 06:20 Potassium 4.1 mmol/L (3.6-5.0) 10/23/18 06:20 Chloride 106 mmol/L (98-107) 10/23/18 06:20 Carbon Dioxide 26 mmol/L (21-33) 10/23/18 06:20 Anion Gap 11 (10-20) 10/23/18 06:20 BUN 14 mg/dL (7-21) 10/23/18 06:20 Creatinine 1.2 mg/dl (0.8-1.5) 10/23/18 06:20 Est GFR ( Amer) > 60 10/23/18 06:20 Est GFR (Non-Af Amer) > 60 10/23/18 06:20 Random Glucose 113 mg/dL (70-110) H 10/23/18 06:20 Hemoglobin A1c 6.1 % (4.2-6.5) 10/20/18 15:00 Calcium 9.0 mg/dL (8.4-10.5) 10/23/18 06:20 Phosphorus 3.7 mg/dL (2.5-4.5) 10/20/18 20:30 Magnesium 2.2 mg/dL (1.7-2.2) 10/20/18 20:30 Total Bilirubin 0.7 mg/dL (0.2-1.3) 10/23/18 06:20 AST 36 U/L (17-59) 10/23/18 06:20 ALT 38 U/L (7-56) 10/23/18 06:20 Alkaline Phosphatase 68 U/L (38-126) 10/23/18 06:20 Troponin I 1.01 ng/mL H* 10/21/18 00:40 Total Protein 7.2 g/dL (5.8-8.3) 10/23/18 06:20 Albumin 4.1 g/dL (3.0-4.8) 10/23/18 06:20 Globulin 3.1 gm/dL 10/23/18 06:20 Albumin/Globulin Ratio 1.3 (1.1-1.8) 10/23/18 06:20 Triglycerides 178 mg/dL (35-160) H 10/20/18 10:01 Cholesterol 229 mg/dL (130-200) H 10/20/18 10:01 LDL Cholesterol Direct 133 mg/dL (0-129) H 10/20/18 10:01 HDL Cholesterol 50 mg/dL (29-60) 10/20/18 10:01 Lipase 89 U/L (23-300) 10/20/18 10:01 TSH 3rd Generation 1.25 mIU/mL (0.46-4.68) 10/20/18 10:01 Urine Color Light yellow (YELLOW) 10/21/18 07:30 Urine Appearance Clear (CLEAR) 10/21/18 07:30 Urine pH 6.0 (4.7-8.0) 10/21/18 07:30 Ur Specific Wheeler 1.025 (1.005-1.035) 10/21/18 07:30 Urine Protein Negative mg/dL (<30 mg/dL) 10/21/18 07:30 Urine Glucose (UA) Negative mg/dL (NEGATIVE) 10/21/18 07:30 Urine Ketones Negative mg/dL (NEGATIVE) 10/21/18 07:30 Urine Blood Negative (NEGATIVE) 10/21/18 07:30 Urine Nitrate Negative (NEGATIVE) 10/21/18 07:30 Urine Bilirubin Negative (NEGATIVE) 10/21/18 07:30 Urine Urobilinogen 0.2 E.U./dL (<1 E.U./dL) 10/21/18 07:30 Ur Leukocyte Esterase Negative Roney/uL (NEGATIVE) 10/21/18 07:30 - Hospital Course Hospital Course: 43 M with no significant PMHx presents to the ED with chest pain. In the ED Patient had basic blood work, CXR and EKG perfomed. Troponin x 1 was neg. Patient was admitted to telemetry for close observation. Patient developed elevated troponin 0.2--> 1.2--> 1. Patient was made NPO and taken for cardiac cath - which three stents were placed (two in the LAD and one in the OM1). Patient developed EKG changes overnight with some chest pain which resolved after 20 min. Patient was scheduled and went for a repeat cardiac cath- which was essentially negative and did no show any occlusions. Today the patient is feeling much better. Denies any f/c, sob, chest ain, palpitations, abd pain, n/v/d. Dx: ACS s/p cardiac cath with 3 stents Discharge Exam - Head Exam Head Exam: ATRAUMATIC - Eye Exam Eye Exam: EOMI, PERRL Pupil Exam: NORMAL ACCOMODATION - Respiratory Exam Respiratory Exam: Clear to PA & Lateral - Cardiovascular Exam Cardiovascular Exam: REGULAR RHYTHM, +S1, +S2 - GI/Abdominal Exam GI & Abdominal Exam: Normal Bowel Sounds, Soft - Neurological Exam Neurological exam: Alert, Oriented x3 - Psychiatric Exam Psychiatric exam: Normal Mood - Skin Skin Exam: Dry, Normal Color Discharge Plan - Discharge Medications Prescriptions: RX: Atorvastatin [Lipitor] 40 mg PO DIN #30 tab RX: Clopidogrel [Plavix] 75 mg PO DAILY #30 tab - Follow Up Plan Condition: IMPROVED Disposition: HOME/ ROUTINE Patient education suggested?: Yes Instructions: Coronary Angioplasty (DC), Heart Attack (DC), Coronary Stenting (DC) Additional Instructions: Follow up with your PMD in 1 week. Educated on smoking cessation Follow up with cardiology in 1 week If your symptoms recur come back to the closest ED Take your medication as prescribed - aspirin and plavix. Referrals: John Grace MD [Staff Provider] - <Simeon Coughlin - Last Filed: 10/23/18 15:31> Provider - Provider Date of Admission: 10/20/18 15:24 Attending physician: Stephen Chauhan MD Consults: 10/20/18 15:26 Consult [Physician Consult] Stat Comment: Consulting Provider: John Grace Consulting Physician: John Grace Reason for Consult: ACS 10/20/18 19:36 Inpatient PLAY THERAPIST Core Measures Referral Routine Comment: Physician Instructions: Reason For Exam: EVALUATION Transition In Care/Readmission Reduction Routine Comment: Physician Instructions: Reason For Exam: EVALUATION Hospital Course - Lab Results Lab Results: Most Recent Lab Values WBC 6.9 10^3/uL (4.5-11.0) 10/23/18 06:20 RBC 5.07 10^6/uL (3.5-6.1) 10/23/18 06:20 Hgb 14.6 g/dL (14.0-18.0) 10/23/18 06:20 Hct 44.7 % (42.0-52.0) 10/23/18 06:20 MCV 88.2 fl (80.0-105.0) 10/23/18 06:20 MCH 28.8 pg (25.0-35.0) 10/23/18 06:20 MCHC 32.7 g/dl (31.0-37.0) 10/23/18 06:20 RDW 14.4 % (11.5-14.5) 10/23/18 06:20 Plt Count 242 10^3/uL (120.0-450.0) 10/23/18 06:20 MPV 9.3 fl (7.0-11.0) 10/23/18 06:20 Gran % 57.5 % (50.0-68.0) 10/23/18 06:20 Lymph % (Auto) 24.8 % (22.0-35.0) 10/23/18 06:20 Frederick % (Auto) 14.1 % (1.0-6.0) H 10/23/18 06:20 Eos % (Auto) 3.3 % (1.5-5.0) 10/23/18 06:20 Baso % (Auto) 0.3 % (0.0-3.0) 10/23/18 06:20 Gran # 3.96 (1.4-6.5) 10/23/18 06:20 Lymph # (Auto) 1.7 (1.2-3.4) 10/23/18 06:20 Frederick # (Auto) 1.0 (0.1-0.6) H 10/23/18 06:20 Eos # (Auto) 0.2 (0.0-0.7) 10/23/18 06:20 Baso # (Auto) 0.02 K/mm3 (0.0-2.0) 10/23/18 06:20 PT 10.9 SECONDS (9.4-12.5) 10/20/18 10:01 INR 0.95 10/20/18 10:01 APTT 29.3 Seconds (25.1-36.5) 10/20/18 10:01 Sodium 139 mmol/L (132-148) 10/23/18 06:20 Potassium 4.1 mmol/L (3.6-5.0) 10/23/18 06:20 Chloride 106 mmol/L (98-107) 10/23/18 06:20 Carbon Dioxide 26 mmol/L (21-33) 10/23/18 06:20 Anion Gap 11 (10-20) 10/23/18 06:20 BUN 14 mg/dL (7-21) 10/23/18 06:20 Creatinine 1.2 mg/dl (0.8-1.5) 10/23/18 06:20 Est GFR ( Amer) > 60 10/23/18 06:20 Est GFR (Non-Af Amer) > 60 10/23/18 06:20 Random Glucose 113 mg/dL (70-110) H 10/23/18 06:20 Hemoglobin A1c 6.1 % (4.2-6.5) 10/20/18 15:00 Calcium 9.0 mg/dL (8.4-10.5) 10/23/18 06:20 Phosphorus 3.7 mg/dL (2.5-4.5) 10/20/18 20:30 Magnesium 2.2 mg/dL (1.7-2.2) 10/20/18 20:30 Total Bilirubin 0.7 mg/dL (0.2-1.3) 10/23/18 06:20 AST 36 U/L (17-59) 10/23/18 06:20 ALT 38 U/L (7-56) 10/23/18 06:20 Alkaline Phosphatase 68 U/L (38-126) 10/23/18 06:20 Troponin I 1.01 ng/mL H* 10/21/18 00:40 Total Protein 7.2 g/dL (5.8-8.3) 10/23/18 06:20 Albumin 4.1 g/dL (3.0-4.8) 10/23/18 06:20 Globulin 3.1 gm/dL 10/23/18 06:20 Albumin/Globulin Ratio 1.3 (1.1-1.8) 10/23/18 06:20 Triglycerides 178 mg/dL (35-160) H 10/20/18 10:01 Cholesterol 229 mg/dL (130-200) H 10/20/18 10:01 LDL Cholesterol Direct 133 mg/dL (0-129) H 10/20/18 10:01 HDL Cholesterol 50 mg/dL (29-60) 10/20/18 10:01 Lipase 89 U/L (23-300) 10/20/18 10:01 TSH 3rd Generation 1.25 mIU/mL (0.46-4.68) 10/20/18 10:01 Urine Color Light yellow (YELLOW) 10/21/18 07:30 Urine Appearance Clear (CLEAR) 10/21/18 07:30 Urine pH 6.0 (4.7-8.0) 10/21/18 07:30 Ur Specific Wheeler 1.025 (1.005-1.035) 10/21/18 07:30 Urine Protein Negative mg/dL (<30 mg/dL) 10/21/18 07:30 Urine Glucose (UA) Negative mg/dL (NEGATIVE) 10/21/18 07:30 Urine Ketones Negative mg/dL (NEGATIVE) 10/21/18 07:30 Urine Blood Negative (NEGATIVE) 10/21/18 07:30 Urine Nitrate Negative (NEGATIVE) 10/21/18 07:30 Urine Bilirubin Negative (NEGATIVE) 10/21/18 07:30 Urine Urobilinogen 0.2 E.U./dL (<1 E.U./dL) 10/21/18 07:30 Ur Leukocyte Esterase Negative Roney/uL (NEGATIVE) 10/21/18 07:30 Attending/Attestation - Attestation Notes (Text): Patient was discharged prior to me seeing the patient and thus was not seen by me
--- NOTE | 2018-10-23 14:19 | PN ---
DATE: 10/23/2018 SUBJECTIVE: The patient is chest pain free. PHYSICAL EXAMINATION: VITAL SIGNS: Blood pressure 133/72. The heart rate is in the 60s. NECK: Negative JVD. LUNGS: Without rales. HEART: S1, S2. EXTREMITIES: Without edema. GROIN: The groin sites are stable. LABORATORY DATA: Hemoglobin is 14.6. Chemistries, BUN and creatinine are unremarkable. IMPRESSION: 1. Status post zoa-HC-fxttympsx myocardial infarction. 2. History of multivessel coronary artery disease. 3. Status post percutaneous transluminal coronary angioplasty and stent of the left anterior descending and circumflex artery. 4. Chronic obstructive pulmonary disease. 5. Nicotine addiction. PLAN: Given these findings, the patient is stable for discharge. Prescriptions have been written for the patient. Instructions and followup has been given to the patient in detail. John Grace MD
== END 2018-10-23 10:57 | disposition home or self-care (01) | DRG 247 ==
LOC: MERGE 09:32 → ED 09:32 → ERH 15:24 → 2RSO 20:56
PROVIDERS: ADMIT Internal Medicine; ATTEND Internal Medicine
PROC: 027035Z Dilation of Coronary Artery, One Artery with Two Drug-eluting Intraluminal Devices, Percutaneous Approach (ICD-10-PCS; principal; 2018-10-21)
PROC: 4A023N7 Measurement of Cardiac Sampling and Pressure, Left Heart, Percutaneous Approach (ICD-10-PCS; 2018-10-21)
PROC: B211YZZ Fluoroscopy of Multiple Coronary Arteries using Other Contrast (ICD-10-PCS; 2018-10-21)
PROC: B215YZZ Fluoroscopy of Left Heart using Other Contrast (ICD-10-PCS; 2018-10-21)
PROC: 3E033PZ Introduction of Platelet Inhibitor into Peripheral Vein, Percutaneous Approach (ICD-10-PCS; 2018-10-21)
PROC: 4A023N7 Measurement of Cardiac Sampling and Pressure, Left Heart, Percutaneous Approach (ICD-10-PCS; 2018-10-22)
PROC: B211YZZ Fluoroscopy of Multiple Coronary Arteries using Other Contrast (ICD-10-PCS; 2018-10-22)
PROC: B215YZZ Fluoroscopy of Left Heart using Other Contrast (ICD-10-PCS; 2018-10-22)
DX: I21.4 Non-ST elevation (NSTEMI) myocardial infarction (principal); I25.110 Atherosclerotic heart disease of native coronary artery with unstable angina pectoris; F17.210 Nicotine dependence, cigarettes, uncomplicated; J44.9 Chronic obstructive pulmonary disease, unspecified; Z82.49 Family history of ischemic heart disease and other diseases of the circulatory system